=== PATIENT | male | born 1980 | race Caucasian/White ===

== ENCOUNTER 2018-06-04 22:36 | Emergency (ER) | payer BC, OTHER ==
[~2018-06-04] VITALS: Ht 175.3 cm; Wt 93.0 kg
[2018-06-04] MEDS ORDERED: TETANUS,DIPTH,PERTUSS P/F (BOOSTRIX) 0.5 ML VIAL IM STA (22:56)
[2018-06-04] MEDS ORDERED: TETRACAINE 0.5% OPHTH SOLN 4 ML BTL (SINGLE DOSE ONLY) OU ONE (23:00)
--- NOTE | 2018-06-04 23:00 | ED EENT ---
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 Pt states issue began yesterday. Pt denies pain or vision problems. Pt's eye appears red and irritated. Source: patient Exam Limitations: no limitations History of Present Illness Date Seen by Provider: Jun 04, 2018 Time Seen by Provider: 22:44 Initial Comments Here with foreign body to the right eye medial aspect. Noted yesterday. Denies vision problems. Denies any significant pain but has some redness in the area of the eye. He tried flushing his eye copiously and unable to remove foreign body. He is a welder production line arc. States that yesterday he did have some that bounced inside his helmet and off the inside of his safety glasses but noticed it on the left and not on the right. Noted the redness today. Denies other injuries or concerns. Tetanus is not up-to-date. Timing/Duration: yesterday Severity: mild Location: eye (R) Prearrival Treatment: flushing eyes Associated Symptoms: No facial pain/swelling, No fever Allergies and Home Medications Allergies Coded Allergies: No Known Drug Allergies (Unverified , 06/04/18) Patient Home Medication List Home Medication List Reviewed: Yes Review of Systems Review of Systems Constitutional: no symptoms reported Eyes: Denies Blurred Vision, Denies Decreased Acuity; Foreign Body Sensation; Denies Pain Respiratory: no symptoms reported Cardiovascular: no symptoms reported Past Gjnqgxb-Medssk-Zvcvpm Hx Past Med/Social Hx: Reviewed Nursing Past Med/Soc Hx Patient Social History Alcohol Use: Denies Use Recreational Drug Use: No 2nd Hand Smoke Exposure: No Recent Foreign Travel: No Contact w/Someone Who Travel: No Recent Infectious Disease Expo: No Recent Hopitalizations: No Physical Abuse: No Sexual Abuse: No Seasonal Allergies Seasonal Allergies: No Past Medical History Surgeries: Yes Orthopedic Respiratory: No Cardiac: No Neurological: No Genitourinary: No Gastrointestinal: No Musculoskeletal: No Endocrine: No HEENT: No Cancer: No Psychosocial: No Integumentary: No Blood Disorders: No Adverse Reaction/Blood Tranf: No Family Medical History Reviewed Nursing Family Hx Physical Exam Vital Signs Vital Signs - First Documented 06/04/18 22:44 Temp 96.8 Pulse 59 Resp 17 B/P (MAP) 132/76 (94) Pulse Ox 97 O2 Delivery Room Air Height, Weight, BMI Height: 5'9.00" Weight: 205lbs. oz. 92.724434pl; BMI Method:Stated General Appearance: WD/WN, no apparent distress Eyes: right eye foreign body (medial aspect medial to pupil and iris. Surrounding erythema noted.); left eye normal inspection; bilateral eye PERRL, bilateral eye EOMI Cardiovascular: regular rate, rhythm, no murmur Respiratory: lungs clear, normal breath sounds Neurologic/Psychiatric: alert, oriented x 3 Progress/Results/Core Measures Results/Orders My Orders Orders - JIMENEZ ATKINS MD Tetracaine 0.5% Ophth Erika Sdv (Tetracai (06/04/18 23:00) Dipht,Pertuss(Acell),Tet Adult (Boostrix (06/04/18 22:56) Rx-Tobramycin Ophth Drops (Rx-Tobrex 0.3 (06/04/18 23:18) Medications Given in ED Current Medications Medications Dose Ordered Sig/Tre Route Start Time Stop Time Status Last Admin Dose Admin Tetracaine HCl 4 ml ONCE ONCE OU 06/04/18 23:00 06/04/18 23:01 DC 06/04/18 23:10 4 ML Vital Signs/I&O 06/04/18 22:44 Temp 96.8 Pulse 59 Resp 17 B/P (MAP) 132/76 (94) Pulse Ox 97 O2 Delivery Room Air Blood Pressure Mean: 94 Progress Progress Note : Progress Note Seen and evaluated. Tetanus updated. Tetracaine drops to the right eye. I was able to remove the foreign body with a Q-tip. Recheck of the eye afterwards with ophthalmoscope did not show any other foreign body or residual. We will go ahead and initiate TobraDex and he will follow up either with the can or eye clinic or his eye doctor. He will call first thing Wednesday morning for appointment. Discharged home with return precautions. Patient verbalize understanding instructions and agreement with plan. Departure Impression Primary Impression: Foreign body of right eye Qualified Codes: T15.91XA - Foreign body on external eye, part unspecified, right eye, initial encounter Disposition: HOME, SELF-CARE Condition: Improved Departure-Patient Inst. Decision time for Depature: 23:23 Referrals: DANIELITO SAUL MD (PCP) Primary Care Physician KAREN CALDERON OD Patient Instructions: Corneal Abrasion (DC) Add. Discharge Instructions: All discharge instructions reviewed with patient and/or family. Voiced understanding. Use eyedrops 1 drop to the right eye every 4 hours while awake. It is very important that he follow up with eye doctor on Wednesday. You may call the [facility] eye clinic for appointment or follow-up with your doctor but either way you need to be seen on Wednesday. Let them know that you were seen in the emergency department and had a foreign body removed. Return for worse pain, fever, swelling, vision problems or other concerns as needed. Images Eye 1 - Foriegn Body Copy Copies To 1: KAREN CALDERON OD, TIMOTHY D MD Jun 04, 2018 22:59
[2018-06-04] MEDS ORDERED: RX-TOBRAMYCIN 0.3% OPHTH (TOBREX) SOLN 5 ML BTL OP STA (23:18)
[2018-06-04 23:48] VITALS: BP 115/82
== END 2018-06-04 23:48 | disposition home or self-care (01) ==
LOC: EDUNIT# 22:36 → ER 22:38
DX: T15.01XA Foreign body in cornea, right eye, initial encounter (principal); Z23 Encounter for immunization; Y92.59 Other trade areas as the place of occurrence of the external cause; Y99.0 Civilian activity done for income or pay
CPT/HCPCS: 90715; 99284